=== PATIENT | female | born 1945 | race Asian ===

== ENCOUNTER 2016-06-11 12:58 | Emergency (ER) | payer MEDICARE, OTHER ==
[~2016-06-11] VITALS: Ht 157.5 cm; Wt 57.7 kg
[~2016-06-11 12:58] MED LIST: LEVO PO; LOPE2 PO; VALS80TA2 PO
[2016-06-11] MEDS ORDERED: PredniSONE 20 MG TABLET PO ONE (13:45)
[2016-06-11] MEDS ORDERED: BENZONATATE 100 MG CAPSULE PO ONE (13:45)
[2016-06-11 14:22] VITALS: BP 148/89
== END 2016-06-11 14:24 | disposition home or self-care (01) ==
LOC: EMS 13:00
DX: J06.9 Acute upper respiratory infection, unspecified (principal); J04.0 Acute laryngitis; I10 Essential (primary) hypertension
CPT/HCPCS: 99283; J7512

== ENCOUNTER → 2016-07-04 | Outpatient (CLI) | payer OTHER ==
[~2016-07-04] MED LIST changes: -LOPE2 PO
== END | disposition home or self-care (01) ==
LOC: RADMN 16:29
PROVIDERS: ATTEND Family Medicine
DX: I51.7 Cardiomegaly (principal); I70.0 Atherosclerosis of aorta
CPT/HCPCS: 71020

== ENCOUNTER → 2016-12-15 | Outpatient (CLI) | payer OTHER | END | disposition home or self-care (01) | LOC: RADMN 16:57 | PROVIDERS: ATTEND Family Medicine | DX: M25.552 Pain in left hip (principal); Z91.81 History of falling | CPT/HCPCS: 73503 ==

== ENCOUNTER → 2017-01-26 | Outpatient (CLI) | payer OTHER | END | disposition home or self-care (01) | LOC: RADPV 11:24 | PROVIDERS: ATTEND Family Medicine | DX: M81.0 Age-related osteoporosis without current pathological fracture (principal) | CPT/HCPCS: 77080 ==

== ENCOUNTER 2018-09-09 21:33 | Emergency (ER) | payer MEDICARE, OTHER ==
[~2018-09-09] VITALS: Ht 157.5 cm; Wt 59.1 kg
[2018-09-09] MEDS ORDERED: AMLO-511 PO (21:48)
[2018-09-09] MEDS ORDERED: LOSA50TA64 PO (21:48)
[2018-09-09] MEDS ORDERED: AMIO200T44 PO (21:49)
[2018-09-09] MEDS ORDERED: HYDR25TA84 PO (21:49)
[2018-09-09] MEDS ORDERED: ASPI-556 PO (21:49)
[2018-09-09] MEDS ORDERED: METO25 PO (21:49)
[2018-09-09] MEDS ORDERED: ATOR10TA84 PO (21:49)
[2018-09-09 23:16] LABS: BASOPHILS % (AUTO) 0.8 % (0.0-2.0); EOSINOPHILS % (AUTO) 1.1 % (1.0-6.0); HEMATOCRIT 33.8 % (36-46); HEMOGLOBIN 11.1 g/dL (12.0-16.0); LYMPHOCYTES # (AUTO) 1.1 K/uL (1.0-4.8); LYMPHOCYTES % (AUTO) 13.5 % (22.0-44.0); MEAN CORPUSCULAR HEMOGLOBIN 27.6 pg (26.0-34.0); MEAN CORPUSCULAR HGB CONC 32.9 G/dL (31.0-37.0); MEAN CORPUSCULAR VOLUME 84 fL (80-100); MONOCYTES # (AUTO) 0.8 K/uL (0.1-1.0); MONOCYTES % (AUTO) 10.2 % (2.0-9.0); NEUTROPHILS % (AUTO) 74.4 % (40.0-70.0); PLATELET COUNT (AUTO) 254 K/uL (150-450); RED BLOOD CELL COUNT(AUTO) 4.04 MIL/uL (4.00-5.20); RED CELL DISTRIBUTION WIDTH 13.4 % (11.5-14.5)
[2018-09-09 23:34] LABS: CALCIUM, TOTAL 8.8 mg/dL (8.8-10.5); CREATININE 1.38 mg/dL (0.60-1.30); POTASSIUM 5.1 mmol/L (3.5-5.1)
[2018-09-09 23:40] LABS: ALBUMIN 3.8 g/dL (3.4-5.0); BILIRUBIN,TOTAL 0.4 mg/dL (0.1-1.0); TOTAL PROTEIN, SERUM 7.8 g/dL (6.4-8.2)
[2018-09-10 01:10] VITALS: BP 144/85
[2018-09-10 12:20] LABS: GLUCOSE,POINT OF CARE 152 MG/DL (70-110)
== END 2018-09-10 01:39 | disposition home or self-care (01) ==
LOC: EMS 22:44
DX: F41.9 Anxiety disorder, unspecified (principal); I10 Essential (primary) hypertension; Z88.1 Allergy status to other antibiotic agents; Z79.82 Long term (current) use of aspirin; Z79.899 Other long term (current) drug therapy
CPT/HCPCS: 93005